=== PATIENT | male | born 1975 | race Hispanic/Latino ===

== ENCOUNTER 2017-03-26 00:22 | Emergency (ER) | payer BC, OTHER ==
[2017-03-26 00:28] VITALS: BMI 31.4
[2017-03-26] MEDS ORDERED: DiphenhydrAMINE 50 mg/ml Inj IVP ONE (00:30)
[2017-03-26] MEDS ORDERED: DiphenhydrAMINE 50 mg/ml Inj ONE (00:31)
--- NOTE | 2017-03-26 00:34 | ED PDOC ---
Arrival/HPI - General Chief Complaint: Allergic Reaction Time Seen by Provider: 03/26/17 00:28 Historian: Patient - History of Present Illness Narrative History of Present Illness (Text): 03/26/17 00:30 Karri Haynes is a 42 year old male, whose past medical history includes asthma, who presents to the Emergency department complaining of an allergic reaction. Patient states he developed hives with associated pruritus tonight after eating [place] food tonight. Patient is unsure what may have triggered the reaction. Patient denies any shortness of breath, nausea, vomiting, diarrhea, headache, dizziness, or any other complaints. Time/Duration: Other (tonight) Symptom Onset: Gradual Symptom Course: Unchanged Activities at Onset: Light, Eating Context: Home Past Medical History - Provider Review Nursing Documentation Reviewed: Yes - Infectious Disease Hx of Infectious Diseases: None - Tetanus Immunization Tetanus Immunization: Up to Date - Past Medical History Past Medical History: No Previous - Cardiac Hx Cardiac Disorders: No - Pulmonary Hx Asthma: Yes - Neurological Hx Neurological Disorder: No - HEENT Hx HEENT Disorder: No - Renal Hx Renal Disorder: No - Endocrine/Metabolic Hx Endocrine Disorders: No - Hematological/Oncological Hx Blood Disorders: No - Integumentary Hx Dermatological Disorder: No - Musculoskeletal/Rheumatological Hx Musculoskeletal Disorders: No - Gastrointestinal Hx Gastrointestinal Disorders: No - Genitourinary/Gynecological Hx Genitourinary Disorders: No - Psychiatric Hx Psychophysiologic Disorder: No Hx Substance Use: No - Past Surgical History Past Surgical History: No Previous - Anesthesia Hx Anesthesia: No - Suicidal Assessment Feels Threatened In Home Enviroment: No Family/Social History - Physician Review Nursing Documentation Reviewed: Yes Family/Social History: Unknown Family HX Smoking Status: Never Smoked Hx Alcohol Use: Yes Hx Substance Use: No Hx Substance Use Treatment: No Allergies/Home Meds Allergies/Adverse Reactions: Allergies No Known Allergies Allergy (Verified 03/26/17 00:28) Home Medications: Home Meds Medication Instructions Recorded Confirmed Albuterol HFA [Ventolin HFA 90 1 puff INH PRN PRN 03/26/17 03/26/17 mcg/actuation (8 g)] Review of Systems - Physician Review All systems were reviewed & negative as marked: Yes - Review of Systems Constitutional: Normal. absent: Fevers Eyes: Normal ENT: Normal Respiratory: Normal. absent: SOB, Cough Cardiovascular: Normal. absent: Chest Pain Gastrointestinal: Normal. absent: Abdominal Pain, Diarrhea, Nausea, Vomiting Genitourinary Male: Normal. absent: Dysuria, Frequency, Hematuria, Urinary Output Changes Musculoskeletal: Normal. absent: Back Pain, Neck Pain Skin: Rash, Pruritis Neurological: Normal Endocrine: Normal Hemo/Lymphatic: Normal Psychiatric: Normal Physical Exam Vital Signs Reviewed: Yes Vital Signs Temp Pulse Resp BP Pulse Ox 03/26/17 02:07 75 16 120/77 98 03/26/17 00:32 98.1 F 86 18 146/106 H 97 Temperature: Afebrile Blood Pressure: Normal Pulse: Regular Respiratory Rate: Normal Appearance: Positive for: Well-Appearing, Non-Toxic, Comfortable Pain Distress: None Mental Status: Positive for: Alert and Oriented X 3 - Systems Exam Head: Present: Atraumatic, Normocephalic Pupils: Present: PERRL Extroacular Muscles: Present: EOMI Conjunctiva: Present: Normal Ears: Present: Normal, NORMAL TM, Normal Canal. No: Erythema, TM Bulging, Fluid Mouth: Present: Moist Mucous Membranes Pharnyx: Present: Normal. No: ERYTHEMA, EXUDATE, TONSILS ENLARGED, Peritonsilar Swelling, Uvular Deviation, Muffled/Hoarse Voice, Strider, Soft Palate/Uvular Edema Nose (External): Present: Atraumatic Nose (Internal): Present: Normal Inspection Neck: Present: Normal Range of Motion Respiratory/Chest: Present: Clear to Auscultation, Good Air Exchange. No: Respiratory Distress, Accessory Muscle Use Cardiovascular: Present: Regular Rate and Rhythm, Normal S1, S2. No: Murmurs Abdomen: Present: Normal Bowel Sounds. No: Tenderness, Distention, Peritoneal Signs Back: Present: Normal Inspection Upper Extremity: Present: Normal Inspection. No: Cyanosis, Edema Lower Extremity: Present: Normal Inspection. No: Edema Neurological: Present: GCS=15, CN II-XII Intact, Speech Normal Skin: Present: Warm, Dry, Rashes (Scattered urticaria to face and arms), Normal Color Psychiatric: Present: Alert, Oriented x 3, Normal Insight, Normal Concentration Medical Decision Making ED Course and Treatment: 03/26/17 00:34 Impression: 42 year old male complaining of an allergic reaction tonight. Differential Diagnosis included but are not limited to: allergic reaction vs. urticaria Plan: -- Benadryl -- Solu-medrol -- Pepcid -- Reassess and disposition Progress Notes: 03/26/17 01:47 On reevaluation the patient feels better and is in no acute distress. I have discussed the results and plan with the patient, who expresses understanding. Patient given the opportunity to ask question, all questions were answered and there is agreement with the plan to discharge the patient home. Patient is stable for discharge. Patient was instructed to follow up with physician/clinic in 1-2 days or return if symptoms persist/worsen or new concerning symptoms arise. - Medication Orders Current Medication Orders: Discontinued Medications Diphenhydramine HCl (Benadryl) Confirm Administered Dose 50 mg .ROUTE .STK-MED ONE Stop: 03/26/17 00:32 Last Admin: 03/26/17 00:35 Dose: Diphenhydramine HCl (Benadryl) 50 mg IVP ONCE ONE Stop: 03/26/17 00:31 Last Admin: 03/26/17 00:35 Dose: 50 mg Famotidine (Pepcid) Confirm Administered Dose 20 mg .ROUTE .STK-MED ONE Stop: 03/26/17 00:32 Last Admin: 03/26/17 00:35 Dose: Famotidine (Pepcid) 20 mg IVP STAT STA Stop: 03/26/17 00:31 Last Admin: 03/26/17 00:35 Dose: 20 mg Methylprednisolone (Solu-Medrol) Confirm Administered Dose 125 mg .ROUTE .STK- MED ONE Stop: 03/26/17 00:32 Last Admin: 03/26/17 00:35 Dose: Methylprednisolone (Solu-Medrol) 125 mg IVP ONCE ONE Stop: 03/26/17 00:31 Last Admin: 03/26/17 00:35 Dose: 125 mg - Scribe Statement The provider has reviewed the documentation as recorded by the [facility] Provider Scribe Attestation: All medical record entries made by the Scribrohan were at my direction and personally dictated by me. I have reviewed the chart and agree that the record accurately reflects my personal performance of the history, physical exam, medical decision making, and the department course for this patient. I have also personally directed, reviewed, and agree with the discharge instructions and disposition. Disposition/Present on Arrival - Present on Arrival Any Indicators Present on Arrival: No History of DVT/PE: No History of Uncontrolled Diabetes: No Urinary Catheter: No History of Decub. Ulcer: No History Surgical Site Infection Following: None - Disposition Have Diagnosis and Disposition been Completed?: Yes Diagnosis: Allergic reaction, Urticaria Disposition: HOME/ ROUTINE Disposition Time: 01:49 Patient Plan: Discharge Condition: GOOD Discharge Instructions (ExitCare): Urticaria (ED), Allergies (ED) Additional Instructions: Take meds as prescribed/follow up with your doctor this week Prescriptions: DiphenhydrAMINE [Benadryl] 50 mg PO Q6 PRN #24 cap PRN Reason: Itching / Pruritus predniSONE [Prednisone] 40 mg PO DAILY #10 tab Forms: [facility] (French), WORK NOTE
[2017-03-26 00:37] VITALS: TEMP 98.1
[2017-03-26 02:09] VITALS: BP 120/77; PULSE 75; RESP 16; O2SAT 98
== END 2017-03-26 02:11 | disposition home or self-care (01) ==
LOC: ED 00:22
DX: L50.9 Urticaria, unspecified (principal); T78.40XA Allergy, unspecified, initial encounter; X58.XXXA Exposure to other specified factors, initial encounter
CPT/HCPCS: 96374; 96375; 99283; J1200; J2930

== ENCOUNTER 2017-12-28 02:47 | Emergency (ER) | payer BC, OTHER ==
[2017-12-28 02:47] VITALS: BMI 31.4
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
[2017-12-28 03:05] VITALS: TEMP 98.2
[2017-12-28] MEDS ORDERED: Sodium Chloride 0.9% 1,000 ML IV SCH (03:30)
[2017-12-28 03:55] LABS: ALB/GLOB RATIO 1.4 (1.1-1.8); ALBUMIN 4.9 g/dL (3.0-4.8); CALCIUM 9.4 mg/dL (8.4-10.5)
[2017-12-28 04:40] LABS: BASO # 0.01 K/mm3 (0.0-2.0); BASO % 0.2 % (0.0-3.0); EOS # 0.2 (0.0-0.7); EOS % 3.7 % (1.5-5.0); GRAN # 3.3 (1.4-6.5); GRAN % 50.2 % (50.0-68.0); HEMOGLOBIN 16.4 g/dL (14.0-18.0); LYMPH # 2.5 (1.2-3.4); LYMPH % 38.4 % (22.0-35.0); MEAN CELL VOLUME 89.6 fl (80.0-105.0); MEAN CORPUSCULAR HEMOGLOBIN 32.3 pg (25.0-35.0); MEAN PLATELET VOLUME 9.8 fl (7.0-11.0); MONO # 0.5 (0.1-0.6); MONO % 7.5 % (1.0-6.0); RBC 5.08 10^6/uL (3.5-6.1); RED CELL DISTRIBUTION WIDTH 12.9 % (11.5-14.5); WHITE BLOOD COUNT 6.6 10^3/ul (4.5-11.0)
[2017-12-28 05:32] VITALS: BP 133/64; PULSE 89; RESP 16; O2SAT 98
--- NOTE | 2017-12-28 09:28 | CARD ---
APPROVED REPORT EKG Measurement Heart [id number] <Conclusion> Sinus tachycardia Nonspecific T wave abnormality Abnormal ECG
== END 2017-12-28 05:46 | disposition home or self-care (01) ==
LOC: ED 02:47
DX: E86.0 Dehydration (principal)
CPT/HCPCS: 80053; 85025; 93005; 96374; 99284; J2405; J7030